=== PATIENT | female | born 1955 | race Caucasian/White ===

== ENCOUNTER 2018-01-21 10:35 | Emergency (ER) | payer OTHER | END 2018-01-21 13:28 | disposition home or self-care (01) | LOC: FTE 10:35 | DX: S00.11XA Contusion of right eyelid and periocular area, initial encounter (principal); I10 Essential (primary) hypertension; E11.9 Type 2 diabetes mellitus without complications; X58.XXXA Exposure to other specified factors, initial encounter; Y92.9 Unspecified place or not applicable; Z79.84 Long term (current) use of oral hypoglycemic drugs; Z79.82 Long term (current) use of aspirin | CPT/HCPCS: 70486; 99284-25 ==

== ENCOUNTER 2018-04-21 09:37 | Emergency (ER) | payer OTHER ==
[2018-04-21] MEDS: traMADol 50 MG TAB PO (10:48)
== END 2018-04-21 12:30 | disposition home or self-care (01) ==
LOC: FTE 09:37
DX: M79.641 Pain in right hand (principal); M25.531 Pain in right wrist; I10 Essential (primary) hypertension; E11.9 Type 2 diabetes mellitus without complications; Z79.82 Long term (current) use of aspirin; Z79.84 Long term (current) use of oral hypoglycemic drugs
CPT/HCPCS: 29125; 73110-RT; 73130-RT; 99283-25

== ENCOUNTER 2018-09-08 08:09 | Day surgery (SDC) | payer OTHER ==
[~2018-09-08 08:09] MED LIST: LIDOCAINE 2% (SDV) 5 ML INJ
[2018-09-08] MEDS ORDERED: PROPOFOL 60 ML (08:57)
[2018-09-08] MEDS ORDERED: hydrALAzine 20 MG INJ (08:57)
== END 2018-09-08 12:32 | disposition home or self-care (01) ==
LOC: GIL 08:09
DX: R19.5 Other fecal abnormalities (principal); K29.50 Unspecified chronic gastritis without bleeding; K64.1 Second degree hemorrhoids; I10 Essential (primary) hypertension; E11.9 Type 2 diabetes mellitus without complications
CPT/HCPCS: 43239; 82962; 88305; 88312; 88313